=== PATIENT | male | born 1970 | race Caucasian/White ===

== ENCOUNTER 2017-09-18 18:55 | Outpatient (CLI) | payer MEDICARE, MEDICAID | END 2017-09-18 18:56 | disposition critical access hospital (66) | LOC: EMS 18:55 | PROVIDERS: ATTEND Surgery | DX: I46.9 Cardiac arrest, cause unspecified (principal) | CPT/HCPCS: A0425; A0433 ==

== ENCOUNTER 2017-09-18 19:12 | Emergency (ER) | payer MEDICARE, MEDICAID ==
--- NOTE | 2017-09-18 19:20 | ED Physician Documentation ---
History of Present Illness - Stated complaint Stated Complaint: CPR - History obtained from History obtained from: Family, EMS - History of Present Illness Timing: Today Pain level max: 0 Pain level now: 0 - Additonal information Additional information: Patient is a 46-year-old male with a history of Down syndrome, was at home tonight and his parents heard him collapse. The found him pulseless and apneic. EMS was called. EMS arrived at the scene, initially found him in ventricular fibrillation, they administered defibrillation 5, patient deteriorated into PEA/asystole. Multiple rounds of epinephrine were given as CPR was continued. No ROSC. Down time approx 60 mins upon arrival to the ED. Review of Systems Unable to obtain: Intubated PD PAST MEDICAL HISTORY - Past Medical History Past Medical History: Yes Other Past Medical History: down syndrome - Past Surgical History Other past surgical history: unknown - Living Situation Living Situation: reports: With family Living Arrangement: reports: At home - Social History Additional Social History: unknown - Family History Family history: reports: Non contributory PD ED PE NORMAL - Vitals Vital signs reviewed: Yes - General General: Other (intubated, face, hands, feet are blue/purple.) - HEENT HEENT: Other (pupils fixed and dilated) - Cardiac Cardiac: Other (absent heart sounds) - Respiratory Respiratory: Other (absent lung sounds. equal breath sounds with bagging.) - Abdomen Abdomen: Other (mild distention) - Derm Derm: Other (cool, dusky) - Neuro Eye Opening: None Motor: None Verbal: None GCS Score: 3 Results - Vitals Vitals: Vital Signs - 24 hr 09/18/17 21:43 Temperature 36.2 C L Heart Rate 70 Respiratory 16 Rate Blood Pressure 107/73 O2 Saturation 98 Oxygen O2 Source Room air PD MEDICAL DECISION MAKING - ED course Complexity details: considered differential, d/w family ED course: Patient is a 46-year-old male with Down syndrome who had a cardiac arrest tonight at home. No return of spontaneous circulation despite approximately 45 minutes of CPR with multiple rounds of epinephrine and multiple defibrillations. Bedside ultrasound reveals cardiac standstill. Time of was pronounced at 1915. I spoke with his parents at bedside. This document was made in part using voice recognition software. While efforts are made to proofread this document, sound alike and grammatical errors may occur. Departure - Departure Disposition: 20 Clinical Impression: Cardiac arrest Discharge Date/Time: 09/18/17 20:15
[2017-09-18 21:45] VITALS: BP 107/73
== END 2017-09-18 20:15 | disposition expired ==
LOC: EDUNIT# → ED 19:12
DX: I46.9 Cardiac arrest, cause unspecified (principal); Q90.9 Down syndrome, unspecified
CPT/HCPCS: 99283; 99284